=== PATIENT | male | born 1960 | race Caucasian/White ===

== ENCOUNTER 2016-07-20 02:14 | Inpatient (IN) | payer MEDICARE, OTHER ==
[~2016-07-20] VITALS: Ht 195.6 cm; Wt 172.4 kg
[2016-07-20] VITALS (7 sets, daily range): BP systolic 86–132; BP diastolic 62–77
[2016-07-20] MEDS ORDERED: HYDROmorphone 1mg/ml Carpuject IVP ONE ×3 (02:30→04:00)
--- NOTE | 2016-07-20 02:31 | Emergency Room Report ---
History of Present Illness General Chief Complaint: Lower Extremity Injury Source: Patient Present Illness HPI This is a 56-year-old morbidly obese male with a history renal failure hemodialysis. He was coming home from dialysis and when he got out of a van he fell. He said his ankle buckled underneath him and he could not stand. Return to move he has severe pain 10 out of 10. Holding still he has minimal pain. Denies any other injury. Did not hit his head. No syncopal episode. Occurred just prior to arrival. Allergies: Coded Allergies: No Known Allergies (Unverified , 07/20/16) Patient History Past Medical History: see triage record, old chart reviewed, DM, renal disease , dialysis Past Surgical History: other Pertinent Family History: none Social History: Denies: smoking Immunizations: other Reviewed Nursing Documentation: PMH: Agreed, PSxH: Agreed Nursing Documentation-PMH Hx Dialysis: Yes - ESRD,LEFT UPPER ARM AV SHUNT Review of Systems Eye: Denies: blurred vision, eye pain ENT: Denies: ear pain, nose congestion, throat swelling Respiratory: Denies: cough, shortness of breath Cardiovascular: Denies: chest pain, palpitations Gastrointestinal: Denies: abdominal pain, diarrhea, nausea, vomiting Musculoskeletal: Reports: joint pain, Denies: back pain Skin: Denies: rash Neurological: Denies: headache, numbness Endocrine: Denies: increased thirst, increased urine Hematologic/Lymphatic: Denies: easy bruising All Other Systems: negative except mentioned in HPI Physical Exam Vital Signs Date Time Temp Pulse Resp B/P Pulse Ox O2 Delivery O2 Flow Rate FiO2 07/20/16 02:15 96.4 72 16 103/69 99 Room Air vitals unremarkable Sp02 EP Interpretation: reviewed, normal General Appearance: well appearing, no apparent distress, alert, obese Head: normocephalic, atraumatic Eyes: bilateral eye EOMI, bilateral eye PERRL ENT: hearing grossly normal, normal pharynx Neck: full range of motion, supple, no meningismus Respiratory: chest non-tender, lungs clear, normal breath sounds Cardiovascular #1: regular rate, rhythm, no murmur Gastrointestinal: normal bowel sounds, non tender, no mass, no organomegaly, no bruit, non-distended Musculoskeletal: back normal, other - Right ankle: There is deformity with dislocation. Dorsalis pedis pulse 2+. Sensation normal. Psychiatric: mood/affect normal Skin: warm/dry Procedures Splinting Splinting : Consent: Verbal Location: right ankle Hand-Made Type: plaster Splint: Posterior short leg and sugar thong Pre-Proc Neuro Vasc Exam: normal Post-Proc Neuro Vasc Exam: normal Patient Tolerated: Well Complications: None Joint Reduction Joint Reduction : Consent: Verbal Joint Reduction Site: other - right ankle Procedural Sedation: No Reduction Attempts: Other - 2 attempts Pre-Procedure NV Exam: Yes Post-Procedure NV Exam: Yes Post Joint Reduction Film: joint not reduced Patient Tolerated: Well Complications: None Progress Patient received Dilaudid for pain. With traction and countertraction I attempted to reduce the ankle. It felt like it reduce but when we placed a splint he came back out. I did this twice. The ankle is unstable. He has good pulse however. Patient placed in a splint. Medical Decision Making Diagnostic Impression: Primary Impression: Closed trimalleolar fracture of ankle Qualified Codes: S82.851A - Displaced trimalleolar fracture of right lower leg , initial encounter for closed fracture Additional Impressions: Morbid obesity with BMI of 45.0-49.9, adult Dislocation of subtalar joint Qualified Codes: S93.04XA - Dislocation of right ankle joint, initial encounter Hyperglycemia due to type 2 diabetes mellitus Qualified Codes: E11.65 - Type 2 diabetes mellitus with hyperglycemia ER Course Patient presents with ankle fracture dislocation. His ankle is unstable. He will probably need surgery. I discussed the case with Dr. Blanco who will admit for Dr. Barajas. She will consult Ortho in AM. Lab Results Impression labs unremarkable Chest X-Ray Diagnostic Results Other Impression Ankle xrays #2:Post reduction. Interpreted by me. Better reduction but still malaligned. Distal fib fx. No STS. Ankle xrays #3: Post reduction. Interpreted by me. 2 views. Same as above. Better alignment but still dislocated. Other X-Ray Diagnostic Results Other X-Ray Diagnostic Results : X-Ray Ordered: right ankle xrays Date: Jul 20, 2016 Time: 03:07 EP Interpretation: Yes Findings: no soft tissue swelling, other - distal fib frx with dislocation. Number of Views: 3 CT/MRI/US Diagnostic Results CT/MRI/US Diagnostic Results : Imaging Test Ordered: CT ankle Impression Read by radiologist. trimalleolar frx. Last Vital Signs Date Time Temp Pulse Resp B/P Pulse Ox O2 Delivery O2 Flow Rate FiO2 07/20/16 02:15 96.4 72 16 103/69 99 Room Air Status: improved Disposition: ADMITTED INPATIENT Condition: Serious EMELINA ASENCIO M.D. Jul 20, 2016 02:31
[2016-07-20] MEDS ORDERED: SERTRALINE HCL25 MG ORAL (02:33)
[2016-07-20] MEDS ORDERED: LOSARTAN POTASS50 MG ORAL (02:33)
[2016-07-20] MEDS ORDERED: ATORVASTATIN CA40 MG ORAL (02:33)
[2016-07-20] MEDS ORDERED: LOVAZA1 GM ORAL (02:33)
[2016-07-20] MEDS ORDERED: HYDROmorphone 1mg/ml Carpuject IM ONE (02:45)
[2016-07-20] MEDS ORDERED: STARLIX60 MG ORAL (02:59)
[2016-07-20] MEDS ORDERED: RENA-VITE RX T1 EAC1 PO (02:59)
[2016-07-20] MEDS ORDERED: ASPIRIN81 MG ORAL (02:59)
[2016-07-20 03:03] LABS: BASOPHILS % (AUTO) 1.1 % (0.0-2.0); EOSINOPHILS % (AUTO) 1.6 % (0.0-3.0); LYMPHOCYTES % (AUTO) 12.5 % (20.0-45.0); MEAN CORPUSCULAR HEMOGLOBIN 31.3 PG (27.0-31.0); MEAN CORPUSCULAR HGB CONC 33.5 G/DL (32.0-36.0); MEAN CORPUSCULAR VOLUME 94 FL (80-99); MEAN PLATELET VOLUME 8.4 FL (6.5-10.1); MONOCYTES % (AUTO) 7.6 % (1.0-10.0); NEUTROPHILS % (AUTO) 77.3 % (45.0-75.0); PLATELET COUNT 244 K/UL (150-450); RED BLOOD COUNT 3.79 M/UL (4.70-6.10); RED CELL DISTRIBUTION WIDTH 12.8 % (11.6-14.8); WHITE BLOOD COUNT 10.8 K/UL (4.8-10.8)
[2016-07-20 03:16] LABS: INR 1.1 (0.9-1.1); PROTHROMBIN TIME 10.9 SEC (9.30-11.50)
[2016-07-20 03:18] LABS: CALCIUM 9.5 mg/dL (8.6-10.2); CREATININE 2.1 mg/dL (0.7-1.2); POTASSIUM 4.1 mEQ/L (3.4-4.9)
--- NOTE | 2016-07-20 08:47 | Diagnostic Imaging Report ---
Indication: TRAUMA, fall, abnormal ankle radiographs Technique: No IV contrast, per trauma protocol. Spiral acquisitions obtained through the ankle. Multiplanar reconstructions were generated. Total dose length product 371 mGycm. CTDIvol(s) 15 mGy. Radiation dose was minimized using automated exposure control Comparison: None Findings: There is a comminuted fracture of the distal tibia. The talus is subluxed laterally and posteriorly by over one half bone width. It also demonstrates rotatory subluxation. Which comes off of the medial aspect of the posterior malleolus a small fracture fragment comes off of the medial malleolus. This fragment is posterior to the main body of the tibia. Enlarged fracture fragment comes off of the posteromedial aspect of the distal tibia; suspect that the medial malleolar fragment was attached to this fragment this fragment is slightly comminuted. Another fragment comments off of the lateral aspect of the posterior talus, and appears to retain its normal relationship with distal fibula. There is a comminuted fracture of the distal fibular shaft, with most of the distal fragments displaced laterally by about one half bone width. There is some medial and dorsal soft tissue swelling, probably representing contusion. Only a small joint effusion is demonstrated. A small sliver of bone is seen posterior and lateral to the medial cuneiform. However, the edges of the medial cuneiform appear well-corticated. Uncertain as whether this represents an avulsion injury, prior injury, or degenerative change. A small sliver of bone is seen adjacent to the base of the fourth metatarsal. There is equivocally some indistinctness to the adjacent fourth metatarsal base cortex. Noted on the coronal reconstructed image, small old chip fracture not completely excludable. Impression: Positive for severely comminuted fractures of the distal tibia and fibula, as detailed above Questionable fractures of the medial cuneiform, first and fourth metatarsal bases, as described Small joint effusion and evidence of soft tissue injury, as described This agrees with the preliminary interpretation provided overnight by [facility] service. The CT scanner at [facility] is accredited by the [employer] and the scans are performed using protocols designed to limit radiation exposure to as low as reasonably achievable to attain images of sufficient resolution adequate for diagnostic evaluation.
[2016-07-20] MEDS ORDERED: Acetaminophen 500mg (ES) tab ORAL PRN (09:00)
[2016-07-20] MEDS ORDERED: Norco 7.5mg/325mg tab ORAL PRN (09:00)
[2016-07-20] MEDS: Sertraline 100mg tab ORAL SCH (10:00)
[2016-07-20] MEDS: Losartan 50mg tab ORAL SCH (10:00)
[2016-07-20] MEDS: Nephrovite tab ORAL SCH (11:01)
[2016-07-20] MEDS: Aspirin EC 81mg tab ORAL SCH (11:02)
--- NOTE | 2016-07-20 11:53 | Diagnostic Imaging Report ---
Indication: PAIN Technique: 3 views of the right ankle Comparison: One half hour earlier Findings: Again demonstrated is a complex ankle fracture with lateral subluxation by about one half bone width of the talus versus the tibia. The degree of reduction appears unchanged Impression: Unchanged, over one half hour, as described
[2016-07-20] MEDS: NovoLOG Insulin Flexpen SUBQ SCH ×3 (12:54→20:43)
--- NOTE | 2016-07-20 13:56 | Diagnostic Imaging Report ---
Indication: Postreduction Technique: 3 views of the right ankle Comparison: One half hour earlier Findings: Overlying plaster splint obscures bony detail. Complex ankle fracture is again demonstrated There is improved alignment of the tibia and talus, but still one half bone width lateral subluxation of the talus., Impression: Improved alignment, postreduction, but persistent subluxation of complex distal ankle fracture
--- NOTE | 2016-07-20 13:56 | Diagnostic Imaging Report ---
Indication: TRAUMA Technique: 3 views of the right ankle Comparison: none Findings: There is a fracture dislocation of the ankle. The distal fibula is comminuted, and there is a multipartite fracture of the posterior and medial malleolus. Impression: Positive for complex ankle fracture dislocation, as described
[2016-07-20] MEDS: Norco 10mg/325mg tab ORAL PRN (19:29)
[2016-07-20] MEDS: Heparin 5000 units/ml inj SUBQ SCH (20:43)
--- NOTE | 2016-07-20 22:58 | History and Physical Report ---
DATE OF ADMISSION: 07/20/2016 CHIEF COMPLAINT: Trip and fall. HISTORY OF PRESENT ILLNESS: This is a 56-year-old morbidly obese patient who is a dialysis patient. The patient has nocturnal hemodialysis every Wednesday, , and Wednesday night. The patient had nocturnal hemodialysis last Wednesday night. After the dialysis, the patient tripped at the exit of the dialysis and twisted his right ankle. He called 911 and came to this hospital emergency department where a fracture of the right ankle was diagnosed. The patient's right ankle put in cast and he was admitted for pain control to medical/surgical floor. PAST MEDICAL HISTORY: 1. End-stage renal failure due to diabetic nephropathy. 2. Type 2 diabetes mellitus. 3. Morbid obesity. 4. Hypertensive cardiovascular disease. MEDICATIONS: Atorvastatin, insulin sliding scale, renal vitamins, losartan, Zoloft, and Tylenol p.r.n. ALLERGIES: No known drug allergies. SOCIAL HISTORY: He lives at home. HABITS: He is nonsmoker and nondrinker. There is no history of illicit drug abuse. FAMILY HISTORY: Unremarkable. REVIEW OF SYSTEMS: HEENT: Hearing and eyesight are normal . Endocrine: Significant for type 2 diabetes mellitus and obesity. Respiratory: Denies shortness of breath, cough, or hemoptysis. Cardiovascular: He denies chest pain or palpitations. Gastrointestinal: No history of hematochezia, melena, hematemesis, diarrhea, or constipation. Genitourinary: He denies dysuria, frequency, urgency, or hematuria. Neurologic: No history of stroke, syncope, or Parkinson disease. PHYSICAL EXAMINATION: GENERAL: This is a middle-aged male, who is morbidly obese. VITAL SIGNS: Blood pressure 86/77, pulse 63 regular, respirations 20, and temperature 98.6 degrees. HEENT: Head is normocephalic and atraumatic. Pupils are equal, round, and reactive to light and accommodation consensually. NECK: Supple. Trachea midline. There was no lymphadenopathy or thyromegaly. LUNGS: Clear to auscultation and percussion. HEART: Regular rate and rhythm without rubs, murmurs, or gallops. ABDOMEN: Pendulous, soft, and nontender. Bowel sounds were active. EXTREMITIES: Right leg is in the cast. He has left upper arm AV fistula with thrill and bruit. NEUROLOGICAL: He is alert and oriented x4. Cranial nerve II through XII intact. LABORATORY AND ANCILLARY DATA: CBC within normal limits. Serum chemistry, BUN 17 and [address]1. Ank[address] CT positive for severely comminuted fractures of the distal tibia and fibula questionable fractures of medial cuneiform third and fourth metatarsal bases as described small joint effusion and evidence of soft tissue injury. ASSESSMENT: 1. Comminuted fracture of the right ankle including tibia and fibula and metatarsal head fractures. 2. End-stage renal failure due to diabetic nephropathy. 3. Type 2 diabetes mellitus. 4. Morbid obesity. 5. Hypertensive cardiovascular disease. PLAN: 1. Orthopedic consult as the patient may need open reduction and internal fixation. 2. Continue home medications. 3. Pain control. 4. Hemodialysis to be done, Wednesday, , and Wednesday. Gaviota Gomez M.D. DR: Jamie JOB#: [id number] CC:
[2016-07-21] VITALS (19 sets, daily range): BP systolic 91–135; BP diastolic 55–76
[2016-07-21] MEDS: NovoLOG Insulin Flexpen SUBQ SCH ×4 (05:54→20:56)
[2016-07-21] MEDS: Sertraline 100mg tab ORAL SCH (08:05)
[2016-07-21] MEDS: Losartan 50mg tab ORAL SCH (08:07)
[2016-07-21] MEDS: Heparin 5000 units/ml inj SUBQ SCH ×2 (08:08→20:56)
[2016-07-21] MEDS: Aspirin EC 81mg tab ORAL SCH (09:00)
[2016-07-21] MEDS: Nephrovite tab ORAL SCH (09:00)
[2016-07-21] MEDS: Norco 10mg/325mg tab ORAL PRN ×2 (11:38→20:54)
--- NOTE | 2016-07-21 12:47 | Nephrology Progress Note ---
Assessment/Plan Plan Complex Fx Rt Ankle - Called Dr. Briones. ESRD - HD soon Subjective Subjective No new c/o Objective Objective Last 24 Hour Vital Signs Date Time Temp Pulse Resp B/P Pulse Ox O2 Delivery O2 Flow Rate FiO2 07/21/16 08:07 127/19 07/21/16 08:00 97.0 58 18 127/59 94 Room Air 07/21/16 04:00 98.2 60 19 111/67 98 Room Air 07/21/16 00:00 98.1 60 19 135/76 98 Room Air 07/20/16 16:00 98.4 68 20 132/68 97 Room Air 07/20/16 14:35 67 111/64 Intake and Output 07/20/16 07/21/16 19:00 07:00 Intake Total 120 ml Output Total 200 ml Balance -80 ml Intake Oral 120 ml Output Urine Total 200 ml # Voids 1 Height (Feet): 6 Height (Inches): 5.00 Weight (Pounds): 380 Objective Cv RR Lung CTA Abd SNT. BS + E Rt Leg in Cast ROBER ARIAS Jul 21, 2016 12:47
[2016-07-22] VITALS: BP 115/66
[2016-07-22 04:00] VITALS: BP 121/74
[2016-07-22] MEDS: NovoLOG Insulin Flexpen SUBQ SCH ×4 (06:15→21:37)
[2016-07-22] MEDS: Norco 10mg/325mg tab ORAL PRN (07:49)
[2016-07-22 08:15] VITALS: BP 112/70
[2016-07-22] MEDS: Aspirin EC 81mg tab ORAL SCH (08:18)
[2016-07-22] MEDS: Losartan 50mg tab ORAL SCH (08:18)
[2016-07-22] MEDS: Sertraline 100mg tab ORAL SCH (08:18)
[2016-07-22] MEDS: Nephrovite tab ORAL SCH (08:19)
[2016-07-22] MEDS: Heparin 5000 units/ml inj SUBQ SCH (08:22)
[2016-07-22 12:07] VITALS: BP 139/76
--- NOTE | 2016-07-22 13:24 | Nephrology Progress Note ---
Assessment/Plan Plan Complex Fx Rt Ankle - Called Dr. Briones. He called back and started yelling @ me!!! Notified Dr. Bass and Dr. Rhodes. Patient placed on [facility] Transfer list accepting Orto Dr. Kiel Angeles. No beds. For HD tomorrow. ESRD - HD soon Subjective Subjective No new c/o Objective Objective Last 24 Hour Vital Signs Date Time Temp Pulse Resp B/P Pulse Ox O2 Delivery O2 Flow Rate FiO2 07/22/16 12:07 97.5 80 20 139/76 97 Room Air 07/22/16 08:48 97.9 07/22/16 08:18 112/70 07/22/16 08:15 97.9 97 20 112/70 95 Room Air 07/22/16 04:00 98.2 70 19 121/74 95 Room Air 07/22/16 00:00 98.4 77 18 115/66 97 Room Air 07/21/16 19:26 97.7 67 18 115/75 97 Room Air 07/21/16 19:15 74 18 113/65 97 Room Air 07/21/16 19:00 79 18 102/72 97 Room Air 07/21/16 18:45 73 18 91/71 97 Room Air 07/21/16 18:30 64 18 111/72 97 Room Air 07/21/16 18:15 76 18 107/75 97 Room Air 07/21/16 18:00 77 18 110/64 97 Room Air 07/21/16 17:45 76 18 104/69 97 Room Air 07/21/16 17:30 83 18 135/55 97 Room Air 07/21/16 17:15 77 18 111/62 97 Room Air 07/21/16 17:00 69 18 116/61 97 Room Air 07/21/16 16:45 69 18 108/57 97 Room Air 07/21/16 16:30 59 18 114/65 97 Room Air 07/21/16 16:26 98.2 72 20 106/66 97 Room Air 07/21/16 16:00 99.1 67 15 119/68 97 Room Air Intake and Output 07/21/16 07/22/16 19:00 07:00 Intake Total 200 ml 860 ml Output Total 0 ml 3750 ml Balance 200 ml -2890 ml Intake Oral 200 ml 360 ml Hemodialysis 500 ml Output Urine Total 0 ml 250 ml Hemodialysis UF 3500 ml # Voids 3 Laboratory Tests 07/21/16 18:45: Hepatitis A IgM Antibody [Pending], Hepatitis B Surface Antigen [Pending], Hepatitis B Core IgM Antibody [Pending], Hepatitis C Antibody [Pending] Height (Feet): 6 Height (Inches): 5.00 Weight (Pounds): 380 Objective Cv RR Lung CTA Abd SNT. BS + E Rt Leg in Cast ROBER ARIAS Jul 22, 2016 13:24
[2016-07-22 16:00] VITALS: BP 126/72
[2016-07-22 19:00] VITALS: BP 129/74
[2016-07-22] MEDS: Enoxaparin 100mg Inj SUBQ SCH (22:52)
[2016-07-23] VITALS (20 sets, daily range): BP systolic 106–146; BP diastolic 56–102
[2016-07-23] MEDS: NovoLOG Insulin Flexpen SUBQ SCH ×4 (06:24→21:00)
--- NOTE | 2016-07-23 07:43 | Nephrology Progress Note ---
Assessment/Plan Plan Complex Trimaleolar Rt Ankle Fracture - Called Dr. Briones. He called back and started yelling @ me!!! Notified Dr. Bass and Dr. Rhodes. Patient placed on [facility] Transfer list accepting [facility] Angeles. No beds as of this morning. Still under financial query. Probable transfer tomorrow? New Lt. Popliteal DVT - on Lovenox. For HD today. ESRD - HD soon Subjective Subjective No new c/o Objective Objective Last 24 Hour Vital Signs Date Time Temp Pulse Resp B/P Pulse Ox O2 Delivery O2 Flow Rate FiO2 07/23/16 04:00 99.5 85 20 132/81 93 Room Air 07/23/16 00:00 99.3 60 20 143/75 95 Room Air 07/22/16 19:00 98.1 73 20 129/74 97 Room Air 07/22/16 16:00 98.2 66 20 126/72 96 Room Air 07/22/16 12:07 97.5 80 20 139/76 97 Room Air 07/22/16 08:48 97.9 07/22/16 08:18 112/70 07/22/16 08:15 97.9 97 20 112/70 95 Room Air Intake and Output 07/22/16 07/23/16 19:00 07:00 Intake Total 720 ml 360 ml Output Total 1 ml 250 ml Balance 719 ml 110 ml Intake Oral 720 ml 360 ml Output Urine Total 1 ml 250 ml # Voids 5 Height (Feet): 6 Height (Inches): 5.00 Weight (Pounds): 380 Objective Cv RR Lung CTA Abd SNT. BS + E Rt Leg in Cast JUANAROBER Jul 23, 2016 07:43
[2016-07-23] MEDS: Sertraline 100mg tab ORAL SCH (09:25)
[2016-07-23] MEDS: Nephrovite tab ORAL SCH (09:25)
[2016-07-23] MEDS: Aspirin EC 81mg tab ORAL SCH (09:25)
[2016-07-23] MEDS: Losartan 50mg tab ORAL SCH (09:25)
[2016-07-23] MEDS: Enoxaparin 100mg Inj SUBQ SCH ×2 (09:37→23:47)
[2016-07-23 09:41] LABS: BASOPHILS % (AUTO) 0.8 % (0.0-2.0); EOSINOPHILS % (AUTO) 1.3 % (0.0-3.0); LYMPHOCYTES % (AUTO) 15.9 % (20.0-45.0); MEAN CORPUSCULAR HGB CONC 33.1 G/DL (32.0-36.0); MEAN CORPUSCULAR VOLUME 94 FL (80-99); MEAN PLATELET VOLUME 8.7 FL (6.5-10.1); MONOCYTES % (AUTO) 8.3 % (1.0-10.0); NEUTROPHILS % (AUTO) 73.7 % (45.0-75.0); PLATELET COUNT 209 K/UL (150-450); RED BLOOD COUNT 3.56 M/UL (4.70-6.10); RED CELL DISTRIBUTION WIDTH 12.6 % (11.6-14.8); WHITE BLOOD COUNT 10.9 K/UL (4.8-10.8)
[2016-07-23 10:07] LABS: ALBUMIN/GLOBULIN RATIO 0.7 (1.0-2.7); CALCIUM 9.3 mg/dL (8.6-10.2); GLOMERULAR FILTRATION RATE 12.1 mL/min (>60); POTASSIUM 4.7 mEQ/L (3.4-4.9); TOTAL PROTEIN 7.3 g/dL (6.6-8.7)
--- NOTE | 2016-07-23 12:45 | Diagnostic Imaging Report ---
APPROVED REPORT CPT Code: 56678 Present Symptoms Lower Extremity Pain: Bilateral Lower Extremity Edema: Bilateral Stasis Disease Comments: Rt tibial fracture. Rt calf and foot covered with cast and bandages. Lt calf stasis dermatitis seen. Technically difficult study due to vessel depth (mid-thigh and calf area). RIGHT LEG: Venous imaging reveals a patent deep venous system. There is no evidence of thrombus within the femoral or popliteal segments. Doppler indicates normal spontaneous flow within these segments. The [id number] superficial femoral vein was not well visualized. The tibial venous segments were not visualized due to cast and bandages. The greater saphenous vein is within normal limits. LEFT LEG: Venous imaging reveals acute thrombus in the [id number] popliteal vein. Imaging reveals patency of the common femoral and superficial femoral veins. Mid calf veins were not well visualized. Greater saphenous vein is within normal limits.
[2016-07-23] MEDS ORDERED: Heparin Sod 1000 units/ml 10ml IV PRN (13:30)
[2016-07-24] VITALS: BP 119/68
[2016-07-24 04:00] VITALS: BP 112/63
[2016-07-24] MEDS: NovoLOG Insulin Flexpen SUBQ SCH ×4 (06:36→20:16)
[2016-07-24 08:15] VITALS: BP 135/62
[2016-07-24] MEDS: Losartan 50mg tab ORAL SCH (09:00)
[2016-07-24] MEDS: Aspirin EC 81mg tab ORAL SCH (09:18)
[2016-07-24] MEDS: Sertraline 100mg tab ORAL SCH (09:19)
[2016-07-24] MEDS: Nephrovite tab ORAL SCH (09:19)
[2016-07-24] MEDS: Enoxaparin 100mg Inj SUBQ SCH ×2 (09:22→20:21)
--- NOTE | 2016-07-24 11:16 | Nephrology Progress Note ---
Assessment/Plan Plan Complex Trimaleolar Rt Ankle Fracture Patient placed on [facility] Transfer list accepting Orto Dr. Kiel Angeles.Patient most likely be operated tomorrow. Most likely will be transferred to [facility] tomorrow. [facility] Transfer Center + Dr. Kiel Angeles. Subjective Subjective No new c/o Objective Objective Last 24 Hour Vital Signs Date Time Temp Pulse Resp B/P Pulse Ox O2 Delivery O2 Flow Rate FiO2 07/24/16 04:00 97.3 65 20 112/63 95 Room Air 07/24/16 00:00 98.4 71 20 119/68 96 Room Air 07/23/16 22:50 98.4 60 18 116/57 Room Air 07/23/16 22:45 64 18 110/56 Room Air 07/23/16 22:30 61 18 106/62 Room Air 07/23/16 22:15 63 18 112/61 Room Air 07/23/16 22:00 59 18 115/64 Room Air 07/23/16 21:45 63 18 108/63 Room Air 07/23/16 21:30 62 18 120/61 Room Air 07/23/16 21:15 61 20 118/62 Room Air 07/23/16 21:00 62 20 116/63 Room Air 07/23/16 20:45 62 20 121/63 Room Air 07/23/16 20:38 98.2 07/23/16 20:30 62 20 119/67 Room Air 07/23/16 20:15 62 20 125/69 Room Air 07/23/16 20:00 61 20 124/60 Room Air 07/23/16 19:50 98.2 69 20 135/63 Room Air 07/23/16 19:00 99.0 69 20 146/69 98 Room Air 07/23/16 16:00 96.8 64 20 126/71 96 Room Air 07/23/16 12:14 97.6 69 22 113/56 96 Room Air Intake and Output 07/23/16 07/24/16 19:00 07:00 Intake Total 720 ml 420 ml Output Total 200 ml 2300 ml Balance 520 ml -1880 ml Intake Oral 720 ml 120 ml Hemodialysis 300 ml Output Urine Total 200 ml Hemodialysis UF 2300 ml # Voids 1 7 Height (Feet): 6 Height (Inches): 5.00 Weight (Pounds): 380 Objective Cv RR Lung CTA Abd SNT. BS + E Rt Leg in Cast ROBER ARIAS Jul 24, 2016 11:15
[2016-07-24 12:03] VITALS: BP 127/75
[2016-07-24 16:00] VITALS: BP 116/85
[2016-07-24 20:00] VITALS: BP 121/75
[2016-07-24] MEDS: Norco 10mg/325mg tab ORAL PRN (20:10)
[2016-07-25] VITALS (13 sets, daily range): BP systolic 88–129; BP diastolic 51–80
[2016-07-25] MEDS: NovoLOG Insulin Flexpen SUBQ SCH ×4 (06:13→20:43)
[2016-07-25] MEDS: Sertraline 100mg tab ORAL SCH (08:44)
[2016-07-25] MEDS: Aspirin EC 81mg tab ORAL SCH (08:44)
[2016-07-25] MEDS: Nephrovite tab ORAL SCH (08:44)
[2016-07-25] MEDS: Losartan 50mg tab ORAL SCH (08:44)
[2016-07-25] MEDS: Norco 10mg/325mg tab ORAL PRN (08:45)
[2016-07-25] MEDS: Enoxaparin 100mg Inj SUBQ SCH ×2 (08:46→20:42)
--- NOTE | 2016-07-25 13:10 | Nephrology Progress Note ---
Assessment/Plan Plan Complex Trimaleolar Rt Ankle Fracture Patient placed on [facility] Transfer list accepting Orto Dr. Kiel Angeles. Despite promises patient still here. Spoke with transfer center. Still trying to transfer today. Dr. Angeles trying to assist. For HD shortly. Subjective Subjective No new c/o Objective Objective Last 24 Hour Vital Signs Date Time Temp Pulse Resp B/P Pulse Ox O2 Delivery O2 Flow Rate FiO2 07/25/16 11:29 97.9 64 19 129/68 97 Room Air 07/25/16 10:18 98.2 07/25/16 08:44 124/72 07/25/16 08:05 98.2 72 19 124/72 99 Room Air 07/25/16 04:00 96.3 69 20 128/80 99 Room Air 07/25/16 00:00 97.7 52 20 111/56 98 Room Air 07/24/16 20:00 98.1 57 20 121/75 98 Room Air 07/24/16 16:00 98.2 59 20 116/85 97 Room Air Intake and Output 07/24/16 07/25/16 19:00 07:00 Intake Total 440 ml Balance 440 ml Intake Oral 440 ml # Voids 2 Height (Feet): 6 Height (Inches): 5.00 Weight (Pounds): 380 Objective Cv RR Lung CTA Abd SNT. BS + E Rt Leg in Cast ROBER ARIAS Jul 25, 2016 13:10
--- NOTE | 2016-07-25 13:29 | Nephrology Progress Note ---
Assessment/Plan Plan Complex Trimaleolar Rt Ankle Fracture Patient placed on [facility] Transfer list accepting Vivek Angeles. Despite promises patient still here. Spoke with transfer center. Still trying to transfer today. Dr. Angeles trying to assist. For HD shortly. Has Pus coming out of Rt antecubital area. To start IV Abx Per ID Subjective Subjective No new c/o Objective Objective Last 24 Hour Vital Signs Date Time Temp Pulse Resp B/P Pulse Ox O2 Delivery O2 Flow Rate FiO2 07/25/16 11:29 97.9 64 19 129/68 97 Room Air 07/25/16 10:18 98.2 07/25/16 08:44 124/72 07/25/16 08:05 98.2 72 19 124/72 99 Room Air 07/25/16 04:00 96.3 69 20 128/80 99 Room Air 07/25/16 00:00 97.7 52 20 111/56 98 Room Air 07/24/16 20:00 98.1 57 20 121/75 98 Room Air 07/24/16 16:00 98.2 59 20 116/85 97 Room Air Intake and Output 07/24/16 07/25/16 19:00 07:00 Intake Total 440 ml Balance 440 ml Intake Oral 440 ml # Voids 2 Height (Feet): 6 Height (Inches): 5.00 Weight (Pounds): 380 Objective Cv RR Lung CTA Abd SNT. BS + E Rt Leg in Cast JUANAROBER Jul 25, 2016 13:29
--- NOTE | 2016-07-25 15:33 | Infectious Diseases Prog Note ---
Assessment/Plan Assessment/Plan Full consult dictated: A) 1) right arm infected wound with cellulitis, iv infected and removed 2) right ankle fracture, including tibia and fibula 3) esrd, hd, anemia, dm, htn, hhd, obesity, fistula, ? depression (on anti- depressive) 4) allergies - negative, fh-nc, sh-negative, mar noted, notes and records reviewed 5) d/w RN P) 1) bactrim plus cipro until iv access then change to vancomycin and cefepime 2) check wc and bc, check labs, wound care per protocol 3) cleared for surgery if blood cultures negative and wound/cellulitis stable 4) continue other treatment per Dr. Escobar 5) ortho f/u for surgery 6) d/w Dr. Gomez 7) orders entered and noted 8) d/w RN Subjective Allergies: Coded Allergies: No Known Allergies (Unverified , 07/20/16) Objective Vital Signs Last 24 Hour Vital Signs Date Time Temp Pulse Resp B/P Pulse Ox O2 Delivery O2 Flow Rate FiO2 07/25/16 11:29 97.9 64 19 129/68 97 Room Air 07/25/16 10:18 98.2 07/25/16 08:44 124/72 07/25/16 08:05 98.2 72 19 124/72 99 Room Air 07/25/16 04:00 96.3 69 20 128/80 99 Room Air 07/25/16 00:00 97.7 52 20 111/56 98 Room Air 07/24/16 20:00 98.1 57 20 121/75 98 Room Air 07/24/16 16:00 98.2 59 20 116/85 97 Room Air Height (Feet): 6 Height (Inches): 5.00 Weight (Pounds): 380 Current Medications Medications (Trade) Dose Ordered Sig/[place] Route PRN Reason Start Time Stop Time Status Last Admin Dose Admin Acetaminophen (Tylenol) 500 mg Q6H PRN ORAL Mild Pain (Pain Scale 1-3) 07/20/16 09:00 08/19/16 08:59 Acetaminophen/ Hydrocodone Bitart ([place] 10/325) 1 ea Q6H PRN ORAL Severe Pain (Pain Scale 7-10) 07/20/16 09:00 07/27/16 08:59 07/25/16 08:45 Acetaminophen/ Hydrocodone Bitart ([place] 7.5/325) 1 ea Q6H PRN ORAL Moderate Pain (Pain Scale 4-6) 07/20/16 09:00 07/27/16 08:59 07/23/16 19:39 Aspirin (Ecotrin) 81 mg DAILY ORAL 07/20/16 10:00 08/19/16 09:59 07/25/16 08:44 Atorvastatin Calcium (Lipitor) 40 mg BEDTIME ORAL 07/20/16 21:00 08/19/16 20:59 07/24/16 20:10 Dextrose (Dextrose 50%) STAT PRN IV Hypoglycemia 07/20/16 09:30 08/19/16 09:29 Enoxaparin Sodium (Lovenox) 100 mg EVERY 12 HOURS SUBQ 07/22/16 21:00 08/21/16 20:59 07/25/16 08:46 Insulin Aspart (NovoLOG) BEFORE MEALS AND HS SUBQ 07/20/16 11:30 08/19/16 11:29 07/25/16 12:13 Losartan Potassium (Cozaar) 50 mg DAILY ORAL 07/20/16 10:00 08/19/16 09:59 07/25/16 08:44 Nateglinide (Starlix) 120 mg TIAC ORAL 07/20/16 16:30 08/19/16 16:29 07/25/16 12:14 Ondansetron HCl (Zofran) 4 mg Q6H PRN IVP Nausea & Vomiting 07/20/16 09:00 08/19/16 08:59 Sertraline HCl (Zoloft) 100 mg DAILY ORAL 07/20/16 10:00 08/19/16 09:59 07/25/16 08:44 Vitamin B Complex/ Vit C/Folic Acid (Nephrovite) 1 tab DAILY ORAL 07/20/16 10:00 08/19/16 09:59 07/25/16 08:44 MIKE GILL Jul 25, 2016 15:33
[2016-07-25] MEDS ORDERED: Bactrim DS (160mg/800mg) tab ORAL ONE ×2 (18:00→21:00)
[2016-07-25] MEDS ORDERED: Cephalexin 500mg cap ORAL ONE ×2 (18:00→21:00)
[2016-07-25] MEDS ORDERED: LOVENOX10 M3 SUBQ (18:39)
[2016-07-25] MEDS ORDERED: CIPRO250 MG ORAL (18:40)
[2016-07-25] MEDS ORDERED: NORCO 10-325 T1 EACH ORAL (18:41)
--- NOTE | 2016-07-26 00:58 | Consultation ---
DATE OF CONSULTATION: INFECTIOUS DISEASE CONSULTATION ADDENDUM Keflex to the regimen with Cipro and Bactrim to cover Streptococcus also. We will add pharmacy and communicate with the pharmacy to dose the medications. Also, in the past medical history, he has hyperlipidemia. Atilio Huber M.D. DR: KAMERON JOB#: [id number] CC:
--- NOTE | 2016-07-26 01:08 | Consultation ---
DATE OF CONSULTATION: ADDENDUM The patient is also colonized with MRSA and we will continue isolation for that. No need to decolonize with Meprozine. At this time, the patient is on oral antibiotics. Atilio Huber M.D. DR: KAMERON JOB#: [id number] CC:
--- NOTE | 2016-07-26 04:58 | Consultation ---
DATE OF CONSULTATION: INFECTIOUS DISEASE CONSULTATION CONSULTING PHYSICIAN: Atilio Huber M.D. ATTENDING PHYSICIAN: Gaviota Gomez M.D. REASON FOR CONSULTATION: Infected right arm wound with cellulitis. CHIEF COMPLAINT: Coming in with right ankle fracture including tibia and fibula. HISTORY OF PRESENT ILLNESS: This is a very pleasant 56-year-old male who presents to [facility]. The patient tripped on exiting dialysis and twisted his right ankle. The patient came to [facility] and diagnosed and had x-ray and CT scan of ankle with fracture of the right ankle including tibia and fibula per reviewing the imaging reports. The patient was awaiting surgery and was noted that his right arm had an infected IV site. His IV was removed and is noted that he has a wound and cellulitis of the right arm. The patient has no IV access at this time. The patient will be placed on Bactrim and Cipro. The patient called MRSA. Once, we have IV access we probably switch him to Vancomycin and cefepime. Infectious consultation was requested by and also clearance for surgery. At this time, a consult Dr. Flood surgery will be happen soon. PAST MEDICAL HISTORY: Includes the following: The patient has a past family history of endstage renal disease and hemodialysis, history of diabetes, hypertension, history of anemia, history of hypertensive heart disease, and diabetes complications, history of obesity, history of fistula of left arm, and possible history of depression. He is on Zoloft and antidepressive medications. History of hyperlipidemia. MEDICATIONS: Upon reviewing the MAR, the patient is on the following medications: The patient is on Cipro and Bactrim. Once we have IV access, the PICC line put him on vancomycin and cefepime. He is on Lovenox, Lipitor, Starlix, NovoLog, Insulin, Nephro-Sondra, Ecotrin, Cozaar, Zoloft, Tylenol, acetaminophen, and Zofran. Please see medications in medical order and past medical history in medical order. The patient is on Cipro, Bactrim, and Lovenox. ALLERGIES: No known drug allergies. No antibiotic allergies. SOCIAL HISTORY: Negative for smoking, alcohol, or drug abuse. FAMILY HISTORY: Noncontributory. REVIEW OF SYSTEMS: Constitutional: Denies fatigue. No fever or chills, night sweats. Head And Neck: No thrush or dysphagia. Cardiac: No chest pain. No pressure. Pulmonary: No congestion or shortness of breath Gastrointestinal: No nausea, vomiting, or diarrhea. Genitourinary: The patient has hemodialysis. Extremities: He has right arm pain. Skin: No rash or itching. Neurologic: No seizures. PHYSICAL EXAMINATION: GENERAL: The patient is alert, responsive, and oriented x3. VITAL SIGNS: The patient's temperature is 97.9 degrees, pulse rate is 64, respiratory rate 19, blood pressure 129/60, and saturation 97%. HEAD AND NECK: Oral exam, no obvious thrush. Mouth seems to be dry. Normocephalic. No facial droop. No neck stiffness. HEART: Regular. No gallop or murmur. ABDOMEN: Soft. Positive bowel sounds. Nontender. No organomegaly. LUNGS: Clear bilaterally. No rhonchi or rales. SKIN: No rash or dermatitis. MUSCULOSKELETAL: No effusions, contractures, or septic arthritis. EXTREMITIES: He has some mild chronic changes of the skin, but no cellulitis. PERIPHERAL VASCULAR: No cyanosis and gangrene. RECTAL: Deferred. GENITOURINARY: No CVA tenderness. No Morris. AV fistula site. There is no cellulitis. NEUROLOGIC: Intact and nonfocal. His IV sites are all the same. EXTREMITIES: His right arm exam has a wound with some pussy drainage and secondary cellulitis. He had an IV at that side, now it is removed. LABORATORY DATA: As follows: White count is slightly elevated at 10.9, hemoglobin 11.0, and creatinine is 5.0. Previous LFTs are unremarkable. IMAGING STUDIES: X-ray of the ankle observed. CT scan of the ankle demonstrated comminuted fracture of the distal tibia and fibula. Fracture of the medial malleolus. X-ray showed complex fracture of the right ankle. Wound culture and blood culture were noted. ASSESSMENT AND PLAN: 1. The patient has an infected IV that is a right arm infected wound with cellulitis warmth and redness. At this time, the patient has no IV access. We will place the patient on Bactrim and Cipro. The patient is colonized with MRSA. Continue Bactrim and Cipro. Once we have IV access, we will place on vancomycin and cefepime. At this time, PICC line is pending and has been ordered. Discussed with nursing staff and this patient is very very difficult IV access otherwise. They cannot get one at this time. Continue Bactrim and Cipro once IV. Switch to vancomycin and cefepime. Check wound culture and blood cultures. The patient is still unable to do surgery soon and the blood cultures remain negative and the wound and cellulitis are stable. Then, the patient is cleared for surgery. We will observe closely. 2. Right ankle fracture including tibia and fibula complicated fracture. The patient will followup with orthopedic surgery for this. 3. End-stage renal disease, on hemodialysis. 4. Fistula. 5. Anemia. 6. Diabetes mellitus. 7. Hypertension. 8. Hypertensive heart disease. 9. Obesity. 10. Fistula. 11. Question of history of depression. The patient is on Zoloft. 12. No known allergies. 13. Social history is negative. 14. Family history is noncontributory. 15. is noted. 16. Case was done. 17. Notes and records reviewed. 18. Continue treatment per Dr. Gomez and consultants. 19. Case discussed with the patient. 20. Would care per protocol. 21. Case discussed with the patient. Atilio Huber M.D. DR: KAMERON JOB#: [id number] CC:
--- NOTE | 2016-07-28 10:53 | Discharge Summary ---
Discharge Summary Hospital Course Date of Admission Jul 20, 2016 at 03:42 Date of Discharge Jul 26, 2016 at 00:00 Admitting Diagnosis Right ankle trimalleolar fracture HPI Brice Ruiz is a 56 year old male who was admitted on Jul 20, 2016 at 03:42 for Right Ankle Trimalleolar Fracture Hospital Course dc summary # [id number] Discharge Medications Continued Medications: Aspirin* (Aspirin*) 81 Mg Tab.chew 81 MG ORAL DAILY, TAB Atorvastatin Calcium* (Atorvastatin Calcium*) 40 Mg Tablet 40 MG ORAL BEDTIME, TAB Ciprofloxacin HCl (Cipro) 250 Mg Tablet 250 MG ORAL EVERY 12 HOURS, TAB Enoxaparin* (Lovenox*) 100 Mg/Ml Inj 100 MG SUBQ EVERY 12 HOURS, #60 EA 0 Refills Hydrocodone Bit/Acetaminophen 10-325* ([place] 10-325*) 1 Each Tablet 1 TAB ORAL Q6H PRN for For Pain, #10 TAB 0 Refills PRN PAIN Losartan Potassium* (Losartan Potassium*) 50 Mg Tablet 50 MG ORAL DAILY, TAB Nateglinide* (Starlix*) 60 Mg Tablet 360 MG ORAL DAILY, TAB Sertraline Hcl* (Sertraline Hcl*) 25 Mg Tablet 100 MG ORAL DAILY, TAB Vit B Cmplx 3/Fa/Vit C/Biotin (Layne-Sondra Rx Tablet) 1 Each Tablet 1 EACH PO DAILY, TAB Discharge Condition Upon Discharge: stable Discharge Disposition Patient was discharged to Acute Care Facility(02)- [facility] under dr Angeles ( ortho) for further management Discharge Diagnoses: Ronny (Vanchtein)Kalrene NP Jul 28, 2016 10:53
--- NOTE | 2016-07-29 02:59 | Discharge Summary 2 SIG ---
DATE OF ADMISSION: 07/20/2016 DATE OF DISCHARGE: 07/26/2016 REASON FOR ADMISSION: 56-year-old male with a history of diabetes, end-stage renal disease, hypertension, and morbid obesity, was coming home from hemodialysis when he sustained a mechanical fall while getting out of van. He felt like his ankle buckled underneath him and he could not stand up. He reported severe pain, 10/10. He denied loss of consciousness, blackouts, or dizziness. He denied headache. He denied head injury. He denies any dizziness. No chest pain. No shortness of breath. No palpitations. Analgesia provided in ED, Right ankle imaging revealed fracture of the ankle: comminuted distal tibia and a multipartite fracture of the posterior and medial malleolus. Emergency department doctor attempted to reduce fracture x2 with subsequent x-ray taken. X-rays showed a better alignment, but still misalignment, right ankle was not stable though the patient was neurovascularly intact , with good pulses. Right ankle CT revealed severely comminuted fracture of the distal tibia and fibula right lower leg. Right lower leg was placed in a splint. Patient was admitted for further management. ADMITTING DIAGNOSES: 1. Acute comminuted displaced trimalleolar fracture, right ankle. 2. Right ankle pain. 3. Morbid obesity. 4. Hyperglycemia with type 2 diabetes. 5. Hypertensive heart disease. HOSPITAL COURSE: The patient admitted. Pain management provided. Wound care provided. DVT prophylaxis provided. PT/OT evaluation was requested. The patient was unable to get ortho surgeon consult in the hospital. The patient was placed on waiting list to be transferred to [facility] under Dr. Angeles. Venous duplex of lower extremities revealed acute DVT in mid to distal popliteal vein left lower extremity. The patient was started on Lovenox for anticoagulation. Blood sugar was managed with sliding scale insulin. Blood pressure was managed with current regimen of antihypertensive medications, and was stable. Hemodialysis done as per Nephrology order. Renal parameters and electrolytes were closely monitored. Nephrotoxic were avoided. On the examination, the patient was found to have clinical evidence of cellulitis right arm. ID followed. Right arm wound with Staph aureus, blood culture negative. Patient started on antibiotics,as per ID recommendation. Patient was transferred to tertiary care hospital- [facility] for further interventions , after the bed was arranged and secured. DISCHARGE DIAGNOSES: 1. Acute complex comminuted trimalleolar right ankle fracture. 2. End-stage renal disease, on hemodialysis. 3. Hypertensive heart disease. 4. Right ankle pain 5. Type 2 diabetes. 6. Morbid obesity with a BMI of 40 to 49. 7. Right ankle pain. 8. Right arm cellulitis. 9. Acute deep venous thrombosis, left lower extremity. DISCHARGE MEDICATIONS: See medication reconciliation list. DISCHARGE INSTRUCTIONS: The patient was transferred to [facility] under orthopedic surgeon, Dr. Angeles. Gaviota Gomez M.D. I have been assigned to dictate discharge summary on this account and I was not involved in the patient's management. Karlene Pollackeleni N.P. DR: YANNI JOB#: [id number] CC: MARCUS
== END 2016-07-26 | disposition short-term general hospital (02) | DRG 562 ==
LOC: EDBD 02:14 → EMR 02:28 → 4E 03:42 → EDBEDREQ 06:35 → 4E 07-22 10:36
PROC: 2W3QX1Z Immobilization of Right Lower Leg using Splint (ICD-10-PCS; principal; 2016-07-20)
PROC: 5A1D60Z (ICD-10-PCS; 2016-07-21)
DX: S82.854A Nondisplaced trimalleolar fracture of right lower leg, initial encounter for closed fracture (principal); N18.6 End stage renal disease; E11.22 Type 2 diabetes mellitus with diabetic chronic kidney disease; I82.432 Acute embolism and thrombosis of left popliteal vein; S82.201A Unspecified fracture of shaft of right tibia, initial encounter for closed fracture; E11.65 Type 2 diabetes mellitus with hyperglycemia; S82.454A Nondisplaced comminuted fracture of shaft of right fibula, initial encounter for closed fracture; D64.9 Anemia, unspecified; Z68.42 Body mass index [BMI] 45.0-49.9, adult; I13.11 Hypertensive heart and chronic kidney disease without heart failure, with stage 5 chronic kidney disease, or end stage renal disease; L03.113 Cellulitis of right upper limb; Z99.2 Dependence on renal dialysis; E66.01 Morbid (severe) obesity due to excess calories; E78.5 Hyperlipidemia, unspecified; F32.9 Major depressive disorder, single episode, unspecified; W17.89XA Other fall from one level to another, initial encounter; Y92.014 Private driveway to single-family (private) house as the place of occurrence of the external cause
CPT/HCPCS: 36415; 80048; 80053; 82962; 85025; 85610; 85730; 86705; 86709; 86803; 87040; 87070; 87081; 87181; 87205; 87340; 93970; J1815

== ENCOUNTER 2018-04-12 11:47 | Inpatient (IN) | payer MEDICARE, OTHER ==
[~2018-04-12] VITALS: Ht 195.6 cm; Wt 137.9 kg
[~2018-04-12 11:47] MED LIST: ASPIRIN81 MG ORAL; ATORVASTATIN CA40 MG ORAL; CIPRO250 MG ORAL; LOSARTAN POTASS50 MG ORAL; LOVAZA1 GM ORAL; LOVENOX10 M3 SUBQ; NORCO 10-325 T1 EACH ORAL; RENA-VITE RX T1 EAC1 PO; SERTRALINE HCL25 MG ORAL; STARLIX60 MG ORAL
[2018-04-12 11:50] VITALS: BP 120/72
[2018-04-12] MEDS ORDERED: ACETAMINOPHEN120 MG RECTAL (11:57)
[2018-04-12] MEDS ORDERED: ZOFRAN4 M1 IV (11:57)
[2018-04-12] MEDS ORDERED: PROCARDIA XL60 MG ORAL (11:57)
[2018-04-12] MEDS ORDERED: RENA-VITE TABL0.8 M1 PO (11:57)
[2018-04-12] MEDS ORDERED: TYLENOL325 M1 PO (11:58)
[2018-04-12] MEDS ORDERED: COLACE100 MG ORAL (12:06)
[2018-04-12] MEDS ORDERED: LIQUACEL 100 LI30 ML PO (12:06)
[2018-04-12] MEDS ORDERED: LIPITOR80 MG ORAL (12:06)
[2018-04-12] MEDS ORDERED: Isovue-300 100ml vial INJ PRN (12:15)
[2018-04-12] MEDS ORDERED: Morphine Sulfate 4mg/ml Inj (IV/IM USE ONLY) IVP ONE (12:15)
[2018-04-12 12:47] LABS: ANION GAP 9 mmol/L (5-15); BLOOD UREA NITROGEN 37 mg/dL (7-18); CALCIUM 9.3 MG/DL (8.5-10.1); CARBON DIOXIDE 30 MMOL/L (21-32); CHLORIDE 98 MMOL/L (98-107); CREATININE 3.1 MG/DL (0.55-1.30); POTASSIUM 4.3 MMOL/L (3.5-5.1); SODIUM 137 MMOL/L (136-145)
[2018-04-12 12:51] LABS: ALANINE AMINOTRANSFERASE 19 U/L (12-78); ALBUMIN 3.2 G/DL (3.4-5.0); ALBUMIN/GLOBULIN RATIO 0.6 (1.0-2.7); ALKALINE PHOSPHATASE 94 U/L (46-116); ASPARTATE AMINO TRANSFERASE 14 U/L (15-37); BILIRUBIN,TOTAL 0.6 MG/DL (0.2-1.0)
[2018-04-12 13:05] LABS: BASOPHILS % (AUTO) 1.4 % (0.0-2.0); EOSINOPHILS % (AUTO) 1.7 % (0.0-3.0); HEMATOCRIT 36.8 % (42.0-52.0); HEMOGLOBIN 12.3 G/DL (14.2-18.0); LYMPHOCYTES % (AUTO) 13.2 % (20.0-45.0); MEAN CORPUSCULAR VOLUME 86 FL (80-99); MONOCYTES % (AUTO) 7.3 % (1.0-10.0); NEUTROPHILS % (AUTO) 76.4 % (45.0-75.0); PLATELET COUNT 212 K/UL (150-450); RED BLOOD COUNT 4.28 M/UL (4.70-6.10); RED CELL DISTRIBUTION WIDTH 12.7 % (11.6-14.8); WHITE BLOOD COUNT 11.1 K/UL (4.8-10.8)
[2018-04-12 14:00] VITALS: BP 112/70
--- NOTE | 2018-04-12 14:24 | Emergency Room Report ---
History of Present Illness General Chief Complaint: Pain Source: Patient, Medical Record Present Illness HPI 58-year-old male presents ED for evaluation. [facility]. Patient states he has swelling under his left ear on the left side of neck for last week. Sharp, 7 out of 10, nonradiating. Denies fevers or chills. Denies difficulty swallowing. Denies difficulty breathing. History of end-stage renal disease. Gets dialysis Wednesday. He completed dialysis today. Denies chest pain. No other aggravating relieving factors. Denies any other associated symptoms Allergies: Coded Allergies: No Known Allergies (Unverified , 07/20/16) Patient History Past Medical History: DM, HTN, renal disease, dialysis Past Surgical History: none Pertinent Family History: none Social History: Denies: smoking, alcohol use, drug use Immunizations: UTD Reviewed Nursing Documentation: PMH: Agreed; PSxH: Agreed Nursing Documentation-PMH Past Medical History: No History, Except For Hx Cardiac Problems: No - Anemia, hyperparathyroidism Hx Hypertension: Yes Hx Pacemaker: No Hx Diabetes: Yes Hx Cancer: No Hx Gastrointestinal Problems: No Hx Dialysis: Yes - ESRD,LEFT UPPER ARM AV SHUNT; T//WED Hx Neurological Problems: No Hx Cerebrovascular Accident: No Hx Transient Ischemic Attacks: No Hx Dementia: No Hx Alzheimer's Disease: No Hx Parkinson's Disease: No Hx Meningitis: No Hx Encephalitis: No Hx Seizures: No Hx Epilepsy: No Hx Multiple Sclerosis: No Hx Cerebral Palsy: No Hx Amyotrophic Lat Sclerosis: No Hx [place] Syndrome: No Hx Paralysis: No Hx Spinal Cord Injury: No Hx Head Trauma: No Hx Traumatic Brain Injury: No Hx Memory Loss: No Hx Concentration Difficulty: No Hx Speech Problem: No Hx Tremors: No Hx Vertigo: No Hx Dizziness: No Hx Syncope: No Hx Headaches: No Hx Aphasia: No Hx Weakness: No - occassional after dialysis weakness Hx Fatigue: No Hx Neurologic Surgery: No Hx Brain Shunt: No Review of Systems All Other Systems: negative except mentioned in HPI Physical Exam Vital Signs Date Time Temp Pulse Resp B/P (MAP) Pulse Ox O2 Delivery O2 Flow Rate FiO2 04/12/18 11:48 98.8 60 16 107/71 96 Room Air Sp02 EP Interpretation: reviewed, normal General Appearance: no apparent distress, alert, GCS 15, non-toxic, obese Head: normocephalic, atraumatic Eyes: bilateral eye normal inspection, bilateral eye PERRL ENT: hearing grossly normal, normal pharynx, no angioedema, normal voice Neck: no meningismus, supple/symm/no masses, other - swelling/TTP L submandibular area Respiratory: chest non-tender, lungs clear, normal breath sounds, speaking full sentences Cardiovascular #1: regular rate, rhythm, no edema Cardiovascular #2: 2+ carotid (R), 2+ carotid (L), 2+ radial (R), 2+ radial (L) , 2+ dorsalis pedis (R), 2+ dorsalis pedis (L) Gastrointestinal: normal bowel sounds, non tender, soft, non-distended, no guarding, no rebound Rectal: deferred Genitourinary: normal inspection, no CVA tenderness Musculoskeletal: back normal, gait/station normal, normal range of motion, non- tender Neurologic: alert, oriented x3, responsive, motor strength/tone normal, sensory intact, speech normal Psychiatric: judgement/insight normal, memory normal, mood/affect normal, no suicidal/homicidal ideation Reflexes: 3+ bicep (R), 3+ bicep (L), 3+ tricep (R), 3+ tricep (L), 3+ knee (R) , 3+ knee (L) Skin: normal color, no rash, warm/dry, well hydrated Lymphatic: no adenopathy Medical Decision Making Diagnostic Impression: Primary Impression: Neck abscess ER Course Hospital Course 58-year-old male presents to ED with pain/swelling to L side of neck Differential diagnoses include: Cellulitis, abscess, rash. Clinical course Patient placed on stretcher. After initial history and physical I ordered labs , blood Cx, CT neck w/ contrast labs reviewed - no leukocytosis, Hb/Hct stable, BUN/Cr elevated (ESRD) CT neck - enlarged lymph on the side, ? neoplasm, ? infectious process antibiotics given. Case discussed with Dr Lora and he agreed to accept the patient to his service for further care and support Diagnosis - neck abscess Patient admitted to floor in serious condition Labs Test 04/12/18 12:10 White Blood Count 11.1 K/UL (4.8-10.8) Red Blood Count 4.28 M/UL (4.70-6.10) Hemoglobin 12.3 G/DL (14.2-18.0) Hematocrit 36.8 % (42.0-52.0) Mean Corpuscular Volume 86 FL (80-99) Mean Corpuscular Hemoglobin 28.8 PG (27.0-31.0) Mean Corpuscular Hemoglobin Concent 33.5 G/DL (32.0-36.0) Red Cell Distribution Width 12.7 % (11.6-14.8) Platelet Count 212 K/UL (150-450) Mean Platelet Volume 9.6 FL (6.5-10.1) Neutrophils (%) (Auto) 76.4 % (45.0-75.0) Lymphocytes (%) (Auto) 13.2 % (20.0-45.0) Monocytes (%) (Auto) 7.3 % (1.0-10.0) Eosinophils (%) (Auto) 1.7 % (0.0-3.0) Basophils (%) (Auto) 1.4 % (0.0-2.0) Sodium Level 137 MMOL/L (136-145) Potassium Level 4.3 MMOL/L (3.5-5.1) Chloride Level 98 MMOL/L (98-107) Carbon Dioxide Level 30 MMOL/L (21-32) Anion Gap 9 mmol/L (5-15) Blood Urea Nitrogen 37 mg/dL (7-18) Creatinine 3.1 MG/DL (0.55-1.30) Estimat Glomerular Filtration Rate 20.9 mL/min (>60) Glucose Level 218 MG/DL (74-106) Calcium Level 9.3 MG/DL (8.5-10.1) Total Bilirubin 0.6 MG/DL (0.2-1.0) Aspartate Amino Transf (AST/SGOT) 14 U/L (15-37) Alanine Aminotransferase (ALT/SGPT) 19 U/L (12-78) Alkaline Phosphatase 94 U/L (46-116) Total Protein 8.3 G/DL (6.4-8.2) Albumin 3.2 G/DL (3.4-5.0) Globulin 5.1 g/dL Albumin/Globulin Ratio 0.6 (1.0-2.7) CT/MRI/US Diagnostic Results CT/MRI/US Diagnostic Results : Imaging Test Ordered: CT A/P Impression 2.5 x 2.0 cm ill-defined nodule, most likely a node adjacent to the left submandibular gland with moderate surrounding inflammation. The findings are likely inflammatory and/or infectious in nature. However neoplasm is not excluded. Please correlate clinically. Follow-up with ENT is recommended. Last Vital Signs Date Time Temp Pulse Resp B/P (MAP) Pulse Ox O2 Delivery O2 Flow Rate FiO2 04/12/18 11:50 98.8 61 15 120/72 98 Room Air Status: improved Disposition: ADMITTED INPATIENT Condition: Serious Referrals: Gaviota Gomez MD (PCP) Clement Eduardo MD Apr 12, 2018 14:24
--- NOTE | 2018-04-12 14:35 | Diagnostic Imaging Report ---
Indication: Left facial swelling Technique: Continuous helical transaxial imaging of the maxillofacial structures obtained after intravenous contrast administration. Coronal 2-D reformats were also obtained. Study obtained in a Siemens sensation [address] Total Dose length Product (DLP): 681.[address] Dose Index Volume (CTDIvol): 28.19 mGy Comparison: None Findings: There is unilateral enlargement of the left some mandibular gland. Adjacent to this there is a ill-defined 2.4 x 2 cm node with the other smaller nodes and a moderate degree of soft tissue stranding indicative of inflammation. The nature of this is not known but likely inflammatory. Correlate clinically. The pathology does not appear to be centered within the salivary gland itself but adjacent to it. Other for this is likely notable inflammation rather than primary sialoadenitis. Consider infection and inflammatory lex disease. However neoplasm is not excluded given the size of the largest node. Please correlate clinically. The adjacent parotid gland is normal. Mild degenerative changes of cervical spine noted. Major vessels enhance normally. The paranasal sinuses are clear as visualized. IMPRESSION: 2.5 x 2.0 cm ill-defined nodule, most likely a node adjacent to the left submandibular gland with moderate surrounding inflammation. The findings are likely inflammatory and/or infectious in nature. However neoplasm is not excluded. Please correlate clinically. Follow-up with ENT is recommended.
[2018-04-12] MEDS ORDERED: Clindamycin 600mg 50 ML IVPB ONE (14:45)
[2018-04-12 15:38] VITALS: BP 113/73
[2018-04-12] MEDS ORDERED: Acetaminophen 500mg (ES) tab ORAL PRN (17:30)
[2018-04-12 20:00] VITALS: BP 150/66
[2018-04-12] MEDS ORDERED: Sennosides 8.6mg tab ORAL PRN (20:00)
[2018-04-12] MEDS: Clindamycin 600mg 50 ML IV SCH (21:15)
[2018-04-12] MEDS: Atorvastatin 20mg tab ORAL SCH (21:15)
[2018-04-12] MEDS: Heparin 5000 units/ml inj SUBQ SCH (21:16)
[2018-04-12 23:59] VITALS: BP 129/77
[2018-04-13 04:00] VITALS: BP 106/69
[2018-04-13] MEDS: Clindamycin 600mg 50 ML IV SCH ×3 (05:43→21:29)
[2018-04-13 07:30] LABS: EOSINOPHILS % (AUTO) 2.3 % (0.0-3.0); HEMATOCRIT 35.2 % (42.0-52.0); HEMOGLOBIN 11.7 G/DL (14.2-18.0); LYMPHOCYTES % (AUTO) 18.4 % (20.0-45.0); MEAN CORPUSCULAR VOLUME 87 FL (80-99); NEUTROPHILS % (AUTO) 70.3 % (45.0-75.0); PLATELET COUNT 197 K/UL (150-450); RED BLOOD COUNT 4.07 M/UL (4.70-6.10); WHITE BLOOD COUNT 10.4 K/UL (4.8-10.8)
[2018-04-13 07:51] LABS: ALANINE AMINOTRANSFERASE 19 U/L (12-78); ALBUMIN 2.9 G/DL (3.4-5.0); ALBUMIN/GLOBULIN RATIO 0.6 (1.0-2.7); ALKALINE PHOSPHATASE 86 U/L (46-116); ANION GAP 10 mmol/L (5-15); ASPARTATE AMINO TRANSFERASE 11 U/L (15-37); BILIRUBIN,TOTAL 0.5 MG/DL (0.2-1.0); BLOOD UREA NITROGEN 54 mg/dL (7-18); CALCIUM 9.1 MG/DL (8.5-10.1); CARBON DIOXIDE 28 MMOL/L (21-32); CHLORIDE 97 MMOL/L (98-107); CREATININE 4.6 MG/DL (0.55-1.30); SODIUM 135 MMOL/L (136-145)
[2018-04-13 08:00] VITALS: BP 108/72
[2018-04-13] MEDS: Docusate 250mg cap ORAL SCH (08:56)
[2018-04-13] MEDS: Sertraline 100mg tab ORAL SCH (08:56)
[2018-04-13] MEDS: Nephrovite tab (Rena-Vite) ORAL SCH (08:56)
[2018-04-13] MEDS: Lactobacillus-GG tablet ORAL SCH ×2 (08:56→17:03)
[2018-04-13] MEDS: Heparin 5000 units/ml inj SUBQ SCH ×2 (08:57→21:28)
[2018-04-13] MEDS: NovoLOG Insulin Flexpen SUBQ SCH ×3 (11:43→21:29)
[2018-04-13 12:00] VITALS: BP 127/78
[2018-04-13 15:51] VITALS: BP 125/78
[2018-04-13 20:00] VITALS: BP 114/72
[2018-04-13 20:21] VITALS: BP 148/77
--- NOTE | 2018-04-13 21:00 | History and Physical Report ---
DATE OF ADMISSION: 04/12/2018 CHIEF COMPLAINT: Left retromandibular swelling and pain. HISTORY OF PRESENT ILLNESS: This is a 58-year-old male from [facility] facility who is on dialysis. The patient has been complaining of swelling onto the left ear for about a week. Initially, the first complaint was of a throat pain. The patient was treated initially with analgesics and swelling and then subsequently the left retroauricular swelling was noticed. The patient is admitted for further evaluation and management. At this point, ENT evaluation is pending and CT scan of the face has been done already. PAST MEDICAL HISTORY: 1. End-stage renal failure due to diabetic nephropathy. 2. Morbid obesity. 3. Status post left below-knee amputation due to chronic osteomyelitis. 4. Hypertensive cardiovascular disease. 5. Peripheral vascular disease. 6. Anemia of chronic kidney disease. MEDICATIONS: Tylenol p.r.n., amino acids, baby aspirin, atorvastatin, insulin sliding scale, sodium docusate, Lovenox, multivitamins, losartan, Starlix, nifedipine XL, Zoloft, and Epogen maybe given at dialysis. ALLERGIES: No known drug allergies. FAMILY HISTORY: Unremarkable. SOCIAL HISTORY: He lives in a snf. HABITS: He is nonsmoker and nondrinker. There is no history of illicit drug abuse. REVIEW OF SYSTEMS: HEENT: Hearing and eyesight are normal. ENDOCRINE: Significant for type 2 diabetes mellitus. RESPIRATORY: He denies shortness of breath, cough, or hemoptysis. CARDIOVASCULAR: Denies chest pain or palpitations. GASTROINTESTINAL: No history of hematochezia, melena, hematemesis, diarrhea, or constipation. GENITOURINARY: He denies dysuria, frequency, or hematuria. NEUROLOGIC: No history of stroke, syncope, or Parkinson disease. PHYSICAL EXAMINATION: GENERAL: This is an elderly, morbidly obese, male, who is in no acute distress. VITAL SIGNS: Blood pressure 108/72, pulse is 60 and regular, respirations 20, and temperature 97.6. HEENT: The head is normocephalic and atraumatic. Pupils are equal, round, and reactive to light and accommodation consensually. He has left retromandibular 2 cm mass, which is mobile and slightly tender. LUNGS: Clear to auscultation and percussion. HEART: Regular rate and rhythm without rubs, murmurs, or gallops. ABDOMEN: Soft and nontender. Bowel sounds were active. EXTREMITIES: His right [id number] stump is clear. He has a left upper arm AV fistula. LABORATORY AND ANCILLARY DATA: Sodium 135, potassium 4, BUN 54, creatinine 4.6, and glucose 187. Hemoglobin 11 and WBC initially 11,100. CT scan of the facial bones show a 2.5 x 2 cm ill-defined nodule adjacent to the left submandibular gland and moderate surrounding inflammation. ASSESSMENT: 1. Suspected left parotitis. 2. End-stage renal failure due to diabetic nephropathy. 3. Morbid obesity. 4. Status post left below-knee amputation due to chronic osteomyelitis. 5. Hypertensive cardiovascular disease. 6. Peripheral vascular disease. 7. Anemia of chronic kidney disease. PLAN: 1. Empiric antibiotic therapy. 2. ENT evaluation. 3. Continue snf medications. 4. Hemodialysis on his schedule, which is Wednesday, , Wednesday. Gaviota Gomez M.D. DR: OLGA JOB#: [id number] CC: MARCUS
[2018-04-13] MEDS: Atorvastatin 20mg tab ORAL SCH (21:28)
[2018-04-13] MEDS: Norco 5mg/325mg tab ORAL PRN (21:37)
[2018-04-14] VITALS: BP 126/79
[2018-04-14 04:08] VITALS: BP 123/72
[2018-04-14] MEDS: Clindamycin 600mg 50 ML IV SCH ×3 (05:06→21:17)
[2018-04-14] MEDS: NovoLOG Insulin Flexpen SUBQ SCH ×4 (05:54→20:49)
[2018-04-14 08:00] VITALS: BP 139/78
[2018-04-14] MEDS: Sertraline 100mg tab ORAL SCH (08:40)
[2018-04-14] MEDS: Nephrovite tab (Rena-Vite) ORAL SCH (08:40)
[2018-04-14] MEDS: Docusate 250mg cap ORAL SCH (08:40)
[2018-04-14] MEDS: Lactobacillus-GG tablet ORAL SCH ×2 (08:40→17:03)
[2018-04-14] MEDS: Heparin 5000 units/ml inj SUBQ SCH ×2 (08:41→20:48)
--- NOTE | 2018-04-14 08:41 | Nephrology Progress Note ---
Assessment/Plan Plan Acute Lt. Parotitis - IV abx. Awaiting ENT Eval ESRD -HD + UF. Subjective Subjective c/o L Retro Jaw swelling. On HD now. Objective Objective Last 24 Hour Vital Signs Date Time Temp Pulse Resp B/P (MAP) Pulse Ox O2 Delivery O2 Flow Rate FiO2 04/14/18 04:08 98.9 63 18 123/72 (89) 97 04/14/18 00:00 98.5 68 19 126/79 (95) 96 04/13/18 22:07 97.7 04/13/18 21:00 Room Air 04/13/18 20:00 98.8 68 17 114/72 (86) 98 04/13/18 15:51 97.9 71 21 125/78 (94) 97 04/13/18 12:00 97.8 72 20 127/78 (94) 97 Intake and Output 04/13/18 04/14/18 19:00 07:00 Intake Total 970 ml 100 ml Output Total 400 ml Balance 570 ml 100 ml Intake Oral 920 ml 0 ml IV Total 50 ml 100 ml Output Urine Total 400 ml # Voids 7 Height (Feet): 6 Height (Inches): 5.00 Weight (Pounds): 304 Objective L behind Jaw swelling. Cv RR Lungs CTA Abd SNT. BS + E RT BKA stump clean. Rt. ankle +2 edema Gaviota Gomez MD Apr 14, 2018 08:41
[2018-04-14] MEDS ORDERED: Heparin Sod 1000 units/ml 10ml IV ONE (09:15)
--- NOTE | 2018-04-14 09:35 | General Progress Note ---
Assessment/Plan Problem List: (1) Neck abscess ICD Codes: L02.11 - Cutaneous abscess of neck SNOMED: 9101659 (2) Dialysis patient ICD Codes: Z99.2 - Dependence on renal dialysis SNOMED: 920853781 (3) Diabetes 1.5, managed as type 1 ICD Codes: E10.9 - Type 1 diabetes mellitus without complications SNOMED: 242675305 (4) Sialadenitis ICD Codes: K11.20 - Sialoadenitis, unspecified SNOMED: 36963876 Assessment/Plan A. Most probably sialadenitis but needs f/u and rescan in 3-4 weeks to check size on node left side of face. P. 1.OK to discharge pt home from [facility] perspective with f/u by ENT. NOTE-I am not a provider of [facility]-he will need to see an ENT who is contracted with [facility]-I have discussed this with the pt. See ENT next week 2.Change antibiotic to Ceftin/Keflex 3. Warm moist pack to left face 5 minutes TID 4. Sialagogues, which is 4 oz water with a drop of lemon to keep pt hydrated and stimulate secretin from gland x 7 days. Thank you for asking my opinion in the care and treatment of this pt. Subjective Date patient seen: Apr 14, 2018 Time patient seen: 09:00 ROS Limited/Unobtainable: No HEENT: Reports: other - Swelling left side of face, MRI indicates LN swelling- parotid vs LN-no previous history Allergies: Coded Allergies: No Known Allergies (Unverified , 07/20/16) All Systems: reviewed and negative except above Objective Last 24 Hour Vital Signs Date Time Temp Pulse Resp B/P (MAP) Pulse Ox O2 Delivery O2 Flow Rate FiO2 04/14/18 08:00 97.0 68 17 139/78 (98) 99 04/14/18 04:08 98.9 63 18 123/72 (89) 97 04/14/18 00:00 98.5 68 19 126/79 (95) 96 04/13/18 22:07 97.7 04/13/18 21:00 Room Air 04/13/18 20:00 98.8 68 17 114/72 (86) 98 04/13/18 15:51 97.9 71 21 125/78 (94) 97 04/13/18 12:00 97.8 72 20 127/78 (94) 97 Intake and Output 04/13/18 04/14/18 19:00 07:00 Intake Total 970 ml 100 ml Output Total 400 ml Balance 570 ml 100 ml Intake Oral 920 ml 0 ml IV Total 50 ml 100 ml Output Urine Total 400 ml # Voids 7 Height (Feet): 6 Height (Inches): 5.00 Weight (Pounds): 304 EENT: other - Tender mass angle of mandible over parotid about 2cm, pain 2/4 History of Present Illness General Source: Patient Present Illness Reason for Visit Swelling left side of face, MRI indicates 2.[address] plus other, prob infective but cannot R/O cancer because of size of 2.[address] HPI [place] started a few days ago-admitted via ER and started o Clindamycin-o sig. change per pt after 2 days. Allergies: Coded Allergies: No Known Allergies (Unverified , 07/20/16) Patient History Past Medical History: diabetes, other - Cholesterol, renal failure on dialysis , obesity Hx Endoscopy: No Pertinent Family History: HTN, diabetes, CAD Horacio Pedraza MD Apr 14, 2018 09:34
[2018-04-14 12:09] VITALS: BP 113/71
[2018-04-14 16:00] VITALS: BP 119/76
[2018-04-14] MEDS: Norco 5mg/325mg tab ORAL PRN (18:23)
[2018-04-14 20:00] VITALS: BP 133/66
[2018-04-14] MEDS: Atorvastatin 20mg tab ORAL SCH (20:48)
[2018-04-15] VITALS: BP 124/67
[2018-04-15 04:00] VITALS: BP 115/72
[2018-04-15] MEDS: Clindamycin 600mg 50 ML IV SCH (05:33)
[2018-04-15] MEDS: NovoLOG Insulin Flexpen SUBQ SCH ×2 (06:04→12:09)
[2018-04-15 08:00] VITALS: BP 129/71
[2018-04-15] MEDS: Nephrovite tab (Rena-Vite) ORAL SCH (08:27)
[2018-04-15] MEDS: Docusate 250mg cap ORAL SCH (08:27)
[2018-04-15] MEDS: Sertraline 100mg tab ORAL SCH (08:27)
[2018-04-15] MEDS: Lactobacillus-GG tablet ORAL SCH (08:27)
[2018-04-15] MEDS: Heparin 5000 units/ml inj SUBQ SCH (08:29)
--- NOTE | 2018-04-15 09:41 | Nephrology Progress Note ---
Assessment/Plan Plan Acute Lt. Parotitis - IV abx. ESRD -HD + UF. ENT Rec 1.OK to discharge pt home from ENT perspective with f/u by ENT. NOTE-I am not a provider of [facility]-he will need to see an ENT who is contracted with [facility]-I have discussed this with the pt. See ENT next week 2.Change antibiotic to Ceftin/Keflex 3. Warm moist pack to left face 5 minutes TID 4. Sialagogues, which is 4 oz water with a drop of lemon to keep pt hydrated and stimulate secretin from gland x 7 days. Subjective Subjective c/o L Retro Jaw swelling. Seen by ENT Objective Objective Last 24 Hour Vital Signs Date Time Temp Pulse Resp B/P (MAP) Pulse Ox O2 Delivery O2 Flow Rate FiO2 04/15/18 08:00 96.9 60 18 129/71 (90) 04/15/18 04:00 97.0 65 18 115/72 (86) 04/15/18 00:00 97.8 60 18 124/67 (86) 04/14/18 21:00 Room Air Room Air 04/14/18 20:00 98.7 60 20 133/66 (88) 04/14/18 16:00 98.8 69 18 119/76 (90) 98 04/14/18 12:09 97.3 64 18 113/71 (85) 97 Intake and Output 04/14/18 04/15/18 18:59 06:59 Intake Total 300 ml 100 ml Output Total 4150 ml 950 ml Balance -3850 ml -850 ml Intake Oral 300 ml IV Total 100 ml Output Urine Total 150 ml 950 ml Hemodialysis UF 4000 ml Height (Feet): 6 Height (Inches): 5.00 Weight (Pounds): 304 Objective L behind Jaw swelling. Cv RR Lungs CTA Abd SNT. BS + E RT BKA stump clean. Rt. ankle +2 edema Gaviota Gomez MD Apr 15, 2018 09:41
[2018-04-15 12:45] VITALS: BP 160/104
[2018-04-15] MEDS ORDERED: Cephalexin 250mg Cap ORAL SCH (14:00)
--- NOTE | 2018-04-17 12:59 | Discharge Summary ---
Discharge Summary Discharge Summary _ DATE OF ADMISSION: April 12, 2018 DATE OF DISCHARGE: April 15, 2018 DISCHARGED BY: Dr. Gomez REASON FOR ADMISSION: 71 years old male ,resident of [facility], with past medical history of end-stage renal disease due to diabetic nephropathy, on hemodialysis , morbid obesity, status post left BKA secondary to chronic osteomyelitis, peripheral vascular disease, hypertensive cardiovascular disease, anemia of chronic disease, morbid obesity, presented to emergency room for evaluation. Patient initially was complaining of throat pain and then noted swelling of the left ear for about 1 week. Patient was treated with analgesics , however swelling persisted. Patient was sent to emergency room for evaluation. CT of the facial bones revealed 2.5 x 2.0 cm ill-defined nodule, most likely a node adjacent to the left submandibular gland with moderate surrounding inflammation. The findings were likely inflammatory and/or infectious in nature. However neoplasm was not excluded. Laboratory workup revealed mild leukocytosis WBC 11.1, hemoglobin 12.3, hematocrit 26.8. BUN 37 creatinine 3.1 consistent with known history of end-stage renal disease. Patient was admitted for further evaluation bu ENT specialist and management. CONSULTANTS: ENT specialist Dr. Pedraza [facility] COURSE: Patient admitted to medical surgical floor and started on empiric antibiotics. ENT eval was requested. SNF medications were continued. Hemodialysis was arranged with close monitoring of volumes and cardiorenal parameters. ENT specialist seen and evaluated the patient. According to ENT, patient probably had sialadenitis. However patient will need to follow-up with rescan in 3-4 weeks to check the size of the nodule on the left side of the face. ENT cleared patient for discharge. Patient will need to follow-up with the ENT provider as per patient's insurance next week. Antibiotic regimen changed to oral. ENT recommended warm moist pack to left face 3 times a day for 5 minutes. Sialagogues, 4 oz water with a drop of lemon to keep pt hydrated and stimulate secretin from gland , recommended as well x 7 days. Patient was subsequently discharged to [facility] for [facility] of care FINAL DIAGNOSES: Neck abscess Sialadenitis. Acute left parotitis End-stage renal disease due to diabetic nephropathy, on hemodialysis Peripheral vascular disease Status post left below-knee amputation secondary to chronic osteomyelitis Hypertensive cardiovascular disease, Anemia of chronic kidney disease Morbid obesity DISCHARGE MEDICATIONS: See Medication Reconciliation list. DISCHARGE INSTRUCTIONS: Patient was [facility] to the [facility] facility. Follow up with medical doctor at the facility. Follow-up with ENT per patient insurance in 1 week. Patient will need repeat CT scan in 3-4 weeks to check the size of the nodule on the left side of the face. I have been assigned to dictate discharge summary for this account. I was not involved in the patient's management. Karlene Jefferson NP Apr 17, 2018 12:59
== END 2018-04-15 16:57 | DRG 154 ==
LOC: EDBD 11:47 → EDUNIT# 11:47 → EMR 12:05 → 4E 15:21 → EDBEDREQ 15:54
PROC: 5A1D70Z Performance of Urinary Filtration, Intermittent, Less than 6 Hours Per Day (ICD-10-PCS; principal; 2018-04-14)
DX: K11.21 Acute sialoadenitis (principal); N18.6 End stage renal disease; L02.11 Cutaneous abscess of neck; I13.11 Hypertensive heart and chronic kidney disease without heart failure, with stage 5 chronic kidney disease, or end stage renal disease; Z99.2 Dependence on renal dialysis; I73.9 Peripheral vascular disease, unspecified; Z89.512 Acquired absence of left leg below knee; D63.1 Anemia in chronic kidney disease; E66.01 Morbid (severe) obesity due to excess calories; E10.22 Type 1 diabetes mellitus with diabetic chronic kidney disease
CPT/HCPCS: 36415; 70488; 80053; 82962; 85025; 87081; 96374; 99285; J1815; S0077